=== PATIENT | female | born 1990 | race Asian ===

== ENCOUNTER 2023-02-17 02:21 | Emergency (ER) | payer OTHER ==
[~2023-02-17] VITALS: Ht 172.7 cm; Wt 63.5 kg
[2023-02-17] MEDS ORDERED: CYCLOBENZAPRINE 10 MG TABLET ONE (02:48)
[2023-02-17] MEDS ORDERED: KETOROLAC TROMETHAMINE INJ 30 MG/ML VIAL ONE (02:48)
--- NOTE | 2023-02-17 02:50 | NUR ---
Pt is noted alert, responsive as she came in C/O Lower Back pain since AM while brushing teeth. Pt care continue with MD at bedside.
[2023-02-17] MEDS ORDERED: KETOROLAC TROMETHAMINE INJ 30 MG/ML VIAL IM ONE (03:00)
[2023-02-17] MEDS ORDERED: CYCLOBENZAPRINE 10 MG TABLET PO ONE (03:00)
--- NOTE | 2023-02-17 03:00 | NUR ---
Toradol 30mg IM and Flexeril 10mg PO given as ordered. Pt care continue.
[2023-02-17] MEDS ORDERED: HYDROCODONE/APAP 5/325MG TABLET PO ONE (03:30)
[2023-02-17] MEDS ORDERED: HYDROCODONE/APAP 5/325MG TABLET ONE (03:39)
--- NOTE | 2023-02-17 03:43 | NUR ---
Penitas 5mg PO given as ordered. Pt care continue.
[2023-02-17] MEDS ORDERED: KETO10TA2 PO (04:17)
[2023-02-17] MEDS ORDERED: HYDR-4209 PO (04:17)
[2023-02-17] MEDS ORDERED: CYCL5TAB PO (04:17)
[2023-02-17 04:36] VITALS: BP 128/68
--- NOTE | 2023-02-17 04:41 | NUR ---
Pt is been discharge to [facility] all discharge instruction given.
== END 2023-02-17 04:42 | disposition home or self-care (01) ==
LOC: ER 02:22
DX: S39.012A Strain of muscle, fascia and tendon of lower back, initial encounter (principal); Z60.2 Problems related to living alone; X58.XXXA Exposure to other specified factors, initial encounter; Y93.89 Activity, other specified; Y92.89 Other specified places as the place of occurrence of the external cause; Y99.8 Other external cause status
CPT/HCPCS: 99283; 96372; J1885